=== PATIENT | female | born 1990 | race Caucasian/White ===

== ENCOUNTER → 2022-03-15 | Outpatient (CLI) | payer BC ==
[~2022-03-15] MED LIST: CATHETER FLUSH 10 ML SYR IVP PRN
--- NOTE | 2022-03-15 17:41 | Diagnostic Imaging Report ---
INDICATION: Right upper quadrant pain. Patient was administered 5.0 mCi technetium 99m Choletec intravenously and imaging over the abdomen was performed. At 60 minutes, patient ingested 8 ounces of Ensure and the gallbladder ejection fraction was calculated. There is homogeneous uptake of activity by the liver with prompt excretion of activity into the gallbladder and common duct. There is normal passage of activity into the small bowel. Gallbladder ejection fraction is abnormally low at 12%. Normal values are 33% or greater. IMPRESSION: 1. Patent cystic duct and common bile duct. 2. Low gallbladder ejection fraction of 12%. Dictated by: Dictated on workstation # [id number]
== END ==
LOC: CARD 12:45
PROVIDERS: ATTEND Registered Nurse Emergency
DX: R10.11 Right upper quadrant pain (principal)
CPT/HCPCS: 78227; A9537